=== PATIENT | female | born 1965 | race Two or more races ===

== ENCOUNTER → 2017-12-29 | Outpatient (CLI) | payer OTHER ==
[~2017-12-29] MED LIST: XANAX0.25 MG
== END | disposition home or self-care (01) ==
LOC: MAMO-SONO 14:26
DX: Z12.31 Encounter for screening mammogram for malignant neoplasm of breast (principal)

== ENCOUNTER 2021-12-24 03:25 | Emergency (ER) | payer OTHER ==
[~2021-12-24] VITALS: Ht 170.2 cm; Wt 81.6 kg
== END 2021-12-24 12:03 | disposition home or self-care (01) ==
LOC: ER 03:25
DX: R10.32 Left lower quadrant pain (principal); R19.7 Diarrhea, unspecified

== ENCOUNTER 2022-04-18 09:27 | Outpatient (CLI) | payer OTHER | END 2022-04-18 09:30 | disposition home or self-care (01) | LOC: MAMO-SONO 09:27 | PROVIDERS: ATTEND Internal Medicine Hematology & Oncology | DX: N63.10 Unspecified lump in the right breast, unspecified quadrant (principal); N63.20 Unspecified lump in the left breast, unspecified quadrant; R19.00 Intra-abdominal and pelvic swelling, mass and lump, unspecified site ==

== ENCOUNTER 2023-05-01 10:54 | Outpatient (CLI) | payer OTHER | END 2023-05-01 12:23 | disposition home or self-care (01) | LOC: MAMO-SONO 10:54 | PROVIDERS: ATTEND Obstetrics & Gynecology | DX: N63.10 Unspecified lump in the right breast, unspecified quadrant (principal); N63.20 Unspecified lump in the left breast, unspecified quadrant; Z12.31 Encounter for screening mammogram for malignant neoplasm of breast ==

== ENCOUNTER 2024-05-17 10:13 | Outpatient (CLI) | payer OTHER | END 2024-05-17 11:00 | disposition home or self-care (01) | LOC: MAMO-SONO 10:13 | PROVIDERS: ATTEND Obstetrics & Gynecology Gynecology | DX: F17.210 Nicotine dependence, cigarettes, uncomplicated (principal) ==

== ENCOUNTER 2024-05-20 08:46 | Outpatient (CLI) | payer OTHER | END 2024-05-20 08:52 | disposition home or self-care (01) | LOC: MAMO-SONO 08:46 | PROVIDERS: ATTEND Anesthesiology | DX: N60.11 Diffuse cystic mastopathy of right breast (principal); N60.12 Diffuse cystic mastopathy of left breast; Z12.31 Encounter for screening mammogram for malignant neoplasm of breast ==

== ENCOUNTER 2025-05-19 09:01 | Outpatient (CLI) | payer OTHER | END 2025-05-19 09:13 | disposition home or self-care (01) | LOC: MAMO-SONO 09:01 | PROVIDERS: ATTEND Obstetrics & Gynecology | DX: R19.00 Intra-abdominal and pelvic swelling, mass and lump, unspecified site (principal); N63.10 Unspecified lump in the right breast, unspecified quadrant; N63.20 Unspecified lump in the left breast, unspecified quadrant ==

== ENCOUNTER 2025-05-23 07:06 | Outpatient (CLI) | payer OTHER | END 2025-05-23 07:11 | disposition home or self-care (01) | LOC: MAMO-SONO 07:06 | PROVIDERS: ATTEND Obstetrics & Gynecology | DX: N63.10 Unspecified lump in the right breast, unspecified quadrant (principal); N63.20 Unspecified lump in the left breast, unspecified quadrant ==